=== PATIENT | female | born 1980 | race Caucasian/White ===

== ENCOUNTER 2016-10-23 13:28 | Outpatient (CLI) | payer OTHER ==
[~2016-10-23] VITALS: Ht 162.6 cm; Wt 75.7 kg
[2016-10-23 14:00] VITALS: Ht 162.6 cm; Wt 75.7 kg
[2016-10-23 14:01] VITALS: BP 97/58; PULSE 80; RESP 18
[2016-10-23 14:23] LABS: ADD UMIC NO; UR ASCORBIC ACID NEGATIVE (NEGATIVE); UR BILIRUBIN (Dip) NEGATIVE (NEGATIVE); UR BLOOD (Dip) NEGATIVE (NEGATIVE); UR CLARITY CLEAR (CLEAR); UR COLOR YELLOW (YELLOW); UR GLUCOSE (Dip) NEGATIVE (NEGATIVE); UR KETONES (Dip) NEGATIVE (NEGATIVE); UR LEUKOCYTE ESTERASE (Dip) NEGATIVE Leu/ul (NEGATIVE); UR NITRITE (Dip) NEGATIVE (NEGATIVE); UR SPECIFIC GRAVITY (Dip) 1.005 (1.003-1.030); UR TOTAL PROTEIN (Dip) NEGATIVE (NEGATIVE); UR UROBILINOGEN (Dip) NEGATIVE (NEGATIVE)
--- NOTE | 2016-10-23 14:34 | RADRPT ---
PROCEDURE: OB ultrasound for biophysical profile CLINICAL INDICATION: labor TECHNIQUE: Multiple sonographic images of the pelvis were obtained. Transabdominal view of the gr avid uterus are available for review. The images were reviewed on a PACS workstation. COMPARISON: None FINDINGS: breathing movement = 2/2 tone = 2/2 motion = 2/2 ADRIANA = 2/2 ADRIANA = 21.5 cm Single live intrauterine with cardiac activity. heart rate equals 136 beats p er minute. Presentation is breech. The placenta is posterior, grade 2. The cervix appears close d and measures approximately 4.5 cm in length. IMPRESSION: 1. Single viable intrauterine gestation. 2. Biophysical profile = 8/8. 3. ADRIANA = 21.5 cm. 3. Breech presentation. RPTAT: KK .Margarito Montenegro MD, MD Date Time Electronically viewed and signed by .Margarito Montenegro MD, MD on 10/23/2016 14:34 .B/
--- NOTE | 2016-10-23 14:36 | RADRPT ---
PROCEDURE: US OB - Limited weight. CLINICAL INDICATION: labor TECHNIQUE: Multiple sonographic images of the pelvis were obtained. Transabdominal imaging only w as performed. The images were reviewed on a PACS workstation. COMPARISON: No prior studies are available for comparison. FINDINGS: There is a single viable intrauterine gestation. Cardiac activity is present with 136 beats per min lacie. There is a breech presentation. Measurements were made in order to determine age. The results are as follows: BPD = 8.3 cm HC = 30.4 cm AC = 29.5 cm FL = 6.5 .cm Estimated gestational age of approximately 33 weeks 4 days +/ - 2 weeks 2 days The estimated date of delivery is 12/07/2016 by ultrasound. The EFW = 2221 g +/- 330 3 g (67%). The placenta is posterior. IMPRESSION: 1. Single viable intrauterine gestation of approximately 33 weeks 4 days with estimated date of del kym of 12/07/2016 by ultrasound evaluation. 2. The estimated weight is 2221 g (67%) . RPTAT: KK .Margarito Montenegro MD, MD Date Time Electronically viewed and signed by .Maragrito Montenegro MD, MD on 10/23/2016 14:36 .B/
--- NOTE | 2016-10-23 16:00 | TRIAGE ---
OB Triage Datetime Report Generated by CPN: 10/23/2016 16:00 Datetime: 10/23/2016 15:45 Vaginal Exam Dilatation (cms): 0.0 Exam By: FOROOHAR Datetime: 10/23/2016 15:00 Stage of : OB Triage Maternal Assessment Level of Consciousness: Fully Conscious Labor Evaluation Frequency: 7uc/hr Monitor Mode: External Duration (sec)2399: 40-60 Quality: Moderate Resting Tone [place]: Relaxed Heart Rate FHR Baseline Rate: 125 Monitor Mode: External US Variability: Moderate 6-25 bpm Accelerations: 15X15 Decelerations: None Category: Category I Pain Assessment Pain Scale: 3 Pain Goal: 3 Membrane Status: Intact Vaginal Bleeding: None Datetime: 10/23/2016 14:00 Labor Evaluation Frequency: 1/20min Duration (sec)2399: 60 Quality: Mild Pattern: Normal: <= 5 Contractions in 10 Minutes Resting Tone [place]: Relaxed Heart Rate FHR Baseline Rate: 130 Monitor Mode: External US Variability: Moderate 6-25 bpm Accelerations: 15X15 Decelerations: None Category: Category I Datetime: 10/23/2016 13:58 Assessment Type: Admission Assessment Maternal Assessment Level of Consciousness: Fully Conscious DTR's/Clonus: DTRs 2+; No Clonus Headache: Denies Blurred Vision: No Respiratory Effort: Unlabored; Regular Rhythm; Equal Expansion Breath Sounds, Left: Clear and Equal Breath Sounds, Right: Clear and Equal Nausea/Vomiting: Denies RUQ Epigastric Pain: Denies Lower Extremities Edema: None Degree: None Upper Extremities Edema: None Degree: None Facial Edema: None Fall Risk Assessment History of Falling: (0) No Secondary Diagnosis: (0) No Ambulatory Aid: (0) Bedrest/Nurse Assist IV Therapy: (0) No Gait: (0) Normal/Bedrest/Immobile Mental Status: (0) Oriented to Own Ability Fall Score: 0 Fall Risk Score Definition: No Risk: No action required Datetime: 10/23/2016 13:54 Time of Arrival: 10/23/2016 13:10 EGA: 32.5 Arrived By: Ambulatory Arrived From: Home Chief Complaint: ABDOMINAL PAIN Movement: Decreased Contractions: Denies/Absent Rupture of Membranes: Denies Vaginal Bleeding: None Vaginal Discharge: Denies Recent Sexual Intercouse: Denies Abdominal Trauma: Not Applicable Patient Complaints: Other Additional Patient Complaints: PT CAME IN COMPLAINING OF ABDOMINAL PAIN FOR 2 WEEKS. Time Provider Notified: 10/23/2016 15:15 Provider Notified: JERZY Initial Plan: NST, BPP, ADRIANA, CERVICAL LENGHT AND UA
--- NOTE | 2016-10-23 16:12 | CONS ---
Date/Time of Note Date/Time of Note DATE: 10/23/16 TIME: 15:59 Consultation Date/Type/Reason Admit Date/Time October 23, 2016 OB triage consult Reason for Consultation This patient is a 35 years old 6 para 2 living 2 3 with 2 previous spontaneous vaginal delivery, came to the triage complaining of abdominal pain for almost 2 weeks. Her estimated date of confinement is December 17 which makes her 22 weeks and 5 weeks now. Her lab works were basically normal with blood type of O+ hepatitis B surface antigen HIV RPR chlamydia and gonorrhea all negative rubella she was immune. Her general vital signs are normal with blood pressure of 97/58, pulse rate of 80 respiration 18,, temperature 97.9. On examination of the abdomen she basically does not seem to have any contractions. heart tone is normal with fairly good variability occasional acceleration no deceleration. On pelvic examination the cervix was closed long and thick no evidence of vaginal bleeding. Laboratory Tests Test 10/23/16 13:45 Urine Color YELLOW Urine Clarity CLEAR Urine pH 7.0 Urine Specific [place] 1.005 Urine Ketones NEGATIVEmg/dL Urine Nitrite NEGATIVEmg/dL Urine Bilirubin NEGATIVEmg/dL Urine Urobilinogen NEGATIVEmg/dL Urine Leukocyte Esterase NEGATIVELeu/ul Urine Hemoglobin NEGATIVEmg/dL Urine Glucose NEGATIVEmg/dL Urine Total Protein NEGATIVEmg/dl Constitutional: No chills, No diaphoresis, No disoriented, No febrile, No improved, No no complaints, No other, No poor po, No requiring IVF, No requiring O2 Eyes: No discharge, No no complaints, No other, No pain, No redness, No visual change ENT: No bleeding, No congestion, No discharge, No dysphagia, No no complaints, No other, No pain, No sore throat Respiratory: No cough, No no complaints, No other, No pain, No pleuritic pain, No shortness of breath, No sputum, No wheezing Cardiovascular: No chest pain, No edema, No lightheadedness, No no complaints, No orthopenea, No other, No palpitations, No paroxysmal nocturnal dyspnea Gastrointestinal: No blood, No constipation, No decreased appetite, No diarrhea , No flatus, No nausea, No no complaints, No other, No pain, No passing stool, No vomiting Genitourinary: other (As I mentioned on pelvic exam the cervix was closed with no evidence of bleeding), No bleeding, No discharge, No dysuria, No flank pain, No hematuria, No no complaints Musculoskeletal: No back pain, No bone/joint pain, No neck pain, No no complaints, No other, No restricted range of motion, No swelling Skin: No bruising, No erythema, No laceration, No no complaints, No other, No pruritis, No rash, No skin lesions Neurologic: No confusion, No dizziness, No focal-weakness, No headache, No no complaints, No other, No seizure, No syncope Additional Comments On ultrasound study the report is a single viable intrauterine gestation with cardiac activity of 136 bpm in breech presentation estimated weight was 2221 g 330 g which makes her 67 percentile. Her ADRIANA was 21.5 cm the biophysical profile of 8.8. With these positive finding patient was reassured and was discharged home to return to clinic or to OB triage in case of severe pain vaginal bleeding or any other symptoms of any complication of Social History Smoking Status: Never smoker Exam/Review of Systems Vital Signs Vitals Vital Signs Date Time Temp Pulse Resp B/P Pulse Ox O2 Delivery O2 Flow Rate FiO2 10/23/16 14:01 97.9 80 18 97/58 Room Air Results Results 24 hrs Laboratory Tests Test 10/23/16 13:45 Urine Color YELLOW Urine Clarity CLEAR Urine pH 7.0 Urine Specific [place] 1.005 Urine Ketones NEGATIVE Urine Nitrite NEGATIVE Urine Bilirubin NEGATIVE Urine Urobilinogen NEGATIVE Urine Leukocyte Esterase NEGATIVE Urine Hemoglobin NEGATIVE Urine Glucose NEGATIVE Urine Total Protein NEGATIVE RADHA SETHI MD Oct 23, 2016 16:10
== END 2016-10-23 16:08 | disposition home or self-care (01) ==
LOC: OBT 13:28 → L-D 13:28 → OBT 16:08
PROVIDERS: ATTEND Obstetrics & Gynecology
DX: O26.892 Other specified pregnancy related conditions, second trimester (principal); R10.9 Unspecified abdominal pain; O09.522 Supervision of elderly multigravida, second trimester; Z3A.22 22 weeks gestation of pregnancy
CPT/HCPCS: 76815; 76817; 76818; 81003; Z7500; G0463